=== PATIENT | male | born 1995 | race Caucasian/White ===

== ENCOUNTER 2017-01-05 00:55 | Emergency (ER) | payer OTHER ==
[~2017-01-05] VITALS: Ht 185.4 cm; Wt 74.8 kg
[2017-01-05 01:04] VITALS: BP 149/64
--- NOTE | 2017-01-05 01:10 | NUR ---
PATIENT PRESENTS TO ED WITH RLQ DISCOMFORT X 2 DAYS. PT DENIES N/V/D; SKIN IS PINK/WARM/DRY; AAOX4 WITH EVEN AND STEADY GAIT; LUNGS CLEAR BL; HR EVEN AND REGULAR; PT DENIES ANY FEVER, CP, SOB, OR COUGH AT THIS TIME; PATIENT STATES PAIN OF 0/10 AT THIS TIME; VSS; PATIENT POSITIONED FOR COMFORT; HOB ELEVATED; BEDRAILS UP X2; BED DOWN. ER MD MADE AWARE OF PT STATUS.
[2017-01-05] MEDS ORDERED: KETOROLAC 60 MG/2 ML VIAL IM ONE (01:15)
[2017-01-05 01:40] VITALS: BP 132/73
== END 2017-01-05 01:40 | disposition home or self-care (01) ==
LOC: MED 00:55
DX: R10.31 Right lower quadrant pain (principal); Z90.89 Acquired absence of other organs; F12.90 Cannabis use, unspecified, uncomplicated
CPT/HCPCS: 81002; 96372; 99283; J1885